=== PATIENT | female | born 1980 | race Two or more races ===

== ENCOUNTER 2018-12-24 13:02 | Inpatient (IN) | payer OTHER ==
[~2018-12-24] VITALS: Ht 167.6 cm; Wt 78.9 kg
--- NOTE | 2018-12-24 13:31 | NUR ---
SE RECIBE PTE ALERTA Y ORIENTADA X3,REFIERE TENR [address] SEMANA WINDOWS APPLICATION ADMINISTRATOR EMBARAZO ,REFIERE PRESION EN EL AREA PELVICA ,EL LA VA ATENDER.
[2018-12-24] MEDS ORDERED: PRENATABS RX T1 EACH PO (16:03)
== END 2018-12-26 12:47 | disposition home or self-care (01) | DRG 807 ==
LOC: ER 13:02 → LDR 13:50 → OB/GYN 19:43
PROVIDERS: ADMIT Obstetrics & Gynecology Maternal & Fetal Medicine
PROC: 10E0XZZ Delivery of Products of Conception, External Approach (ICD-10-PCS; principal; 2018-12-24)
PROC: 0HQ9XZZ Repair Perineum Skin, External Approach (ICD-10-PCS; 2018-12-24)
PROC: 3E033VJ Introduction of Other Hormone into Peripheral Vein, Percutaneous Approach (ICD-10-PCS; 2018-12-24)
PROC: 10907ZC Drainage of Amniotic Fluid, Therapeutic from Products of Conception, Via Natural or Artificial Opening (ICD-10-PCS; 2018-12-24)
PROC: 4A1HXCZ Monitoring of Products of Conception, Cardiac Rate, External Approach (ICD-10-PCS; 2018-12-24)
DX: O70.0 First degree perineal laceration during delivery (principal); Z37.0 Single live birth; Z3A.40 40 weeks gestation of pregnancy